=== PATIENT | male | born 1970 | race Caucasian/White ===

== ENCOUNTER 2024-12-07 23:15 | Emergency (ER) | payer BC, SELFPAY ==
[2024-12-07 23:18] VITALS: BMI 48.7
--- NOTE | 2024-12-07 23:29 | PD.EDCPR ---
ED CPR RME/HPI General Chief Complaint: Cardiac Arrest/CPR Stated Complaint: STAT Time Seen by Provider: 12/07/24 23:30 Arrival date/time: 12/07/24 23:15 RME / HPI RME / HPI narrative: This section includes all my notes and documentations, including HPI, PE, and ED course. Ted Gardner MD HPI: 54yo male with a history of HTN, GERD, anemia, drug use BIBA from home presents to the ED with CPR actively in progress. Patient was seen by me immediately upon arrival at 2313. Patient was intubated at 2323. Per EMS, patient was last seen well at 2200, reporting they received a call at 2236 stating the patient was found down on the floor in his trailer. Family did not start CPR. EMS notes the patient was down for 25 minutes [employer] OF [employer]IES [employer], and was administered Narcan 4mg and 4 epi. Last epi was given at 2310. Blood sugar on scene was 284. EMS states the patient never had a shockable rhythm with them. And due to the confinement of the trailer, CPR was difficult. Physical Exam: General: No response. Eyes: Pupils fixed and dilated. ENT:? No signs of trauma. Neck: Soft. Heart: No cardiac activity. Lungs:? No spontaneous respiration. Abdomen:? Soft. Skin: Cool and pale with peripheral cyanosis. Neuro: GCS 3. ACLS protocol followed, including cycles of 2-minute chest compressions. Despite ED staff's best efforts, made decision to abort the resuscitation effort and patient at 2328. Rest in peace Mr. Emerson. Treatment here included Epinephrine, Bicarb, Calcium Gluconate, and Narcan. See code sheet for details. Ted Gardner MD Review of Systems Review of Systems ROS Unobtainable: unobtainable due to medical condition ED Exam Narrative Physical exam: As noted in HPI. Course Quality Measures none Procedures -ED Intubation Time out performed: No (performed emergently) Laryngoscope: fiber optic video scope Assist Device Used: fiber optic device ET Tube Size: 8 ET Tube Uncuffed: No Tube Secured Depth (cm): 25 Tube Secured Location: teeth Tube Placement Confirmation: visualized tube passing through cords, equal breath sounds bilaterally, no breath sounds over epigastrium and confirmation by capnometry Patient Tolerated Procedure: well and no complications Cardiac Arrest / CPR MDM Narrative MDM Narrative:: Scribe Attestation: 12/07/24 Thalia Galarza am scribing for and in the presence of Dr. Gardner. Patient data External records reviewed:: [facility] previous records (Per chart review, patient has no previous ED visits or admissions to this facility.) Clinical information provided by:: EMS Social determinants that could affect healthcare access:: substance use (history of) Patient has the following chronic illnesses:: HTN, GERD, anemia How is presenting disease/condition affected by chronic disease/condition?: uneffected by Evaluation data The following diagnostics were reviewed and interpreted by me:: other (specify) (none) Lab and/or radiology exams considered but not ordered:: none Interpretation Summary: none Medications / Prescriptions Medications or Prescriptions considered but not ordered:: none Medication administrations:: Epinephrine, Bicarb, Calcium Gluconate, Narcan. See code sheet for medication details. Consultations Consultation(s) initiated? (list below): No Diagnosis Cardiac arrest differential diagnosis: acute massive pulmonary embolism, acute respiratory failure, acute myocardial infarction, cardiac arrest and sudden cardiac Most likely diagnosis given after review of the tests above:: Cardiac arrest Admission Indicated Admission indicated?: not indicated Explain why admission is indicated or not indicated:: Patient Admission Request Was there a request for admission?: No Disposition Plan Disposition Plan: other (specify) (Patient .) Discharge Plan Plan Patient Disposition: Problem List Clinical Impression: Cardiac arrest Patient/Caregiver Discharge Instructions Print Language: Greek
--- NOTE | 2024-12-08 00:06 | PC.NURSE ---
Reported to Donita @ [facility] Case #[id number]
--- NOTE | 2024-12-08 00:21 | PC.NURSE ---
Called [facility] and reported . S/T Lilian
--- NOTE | 2024-12-08 01:03 | PC.NURSE ---
Called Lilian @ [facility] and reported that family is ready to picker and packer from [facility] home. Lilian states that she will notify Maile
== END 2024-12-07 23:28 | disposition expired ==
LOC: SERX 12-08 02:58
PROVIDERS: Emergency Provider Emergency Medicine; PCP Internal Medicine
DX: I46.9 Cardiac arrest, cause unspecified (principal); I10 Essential (primary) hypertension
CPT/HCPCS: 31500; 92950; 99285; J0171; J2310